=== PATIENT | female | born 1950 | race Caucasian/White ===

== ENCOUNTER 2021-02-15 15:30 | Emergency (ER) | payer MEDICARE ==
[2021-02-15] MEDS ORDERED: NORCO 5-325 TA1 EACH PO (18:51)
[2021-02-17] MEDS ORDERED: CELEXA10 MG PO (15:00)
[2021-02-17] MEDS ORDERED: SYNTHROID50 MCG PO (15:00)
[2021-02-17] MEDS ORDERED: MVI PO (15:02)
[2021-02-17] MEDS ORDERED: ESTROGEN CREAM VG (15:02)
[2021-02-17] MEDS ORDERED: TYLOPHEN500 MG PO (15:03)
== END 2021-02-15 19:22 | disposition home or self-care (01) ==
LOC: FER 15:30
DX: S52.501A Unspecified fracture of the lower end of right radius, initial encounter for closed fracture (principal); Z91.041 Radiographic dye allergy status; W01.0XXA Fall on same level from slipping, tripping and stumbling without subsequent striking against object, initial encounter; Y93.01 Activity, walking, marching and hiking; Y92.830 Public park as the place of occurrence of the external cause
CPT/HCPCS: 73110

== ENCOUNTER → 2021-02-22 | Day surgery (SDC) | payer MEDICARE ==
[~2021-02-22] VITALS: Ht 170.2 cm; Wt 67.1 kg
[~2021-02-22] MED LIST: CELEXA10 MG PO; ESTROGEN CREAM VG; MUCINEX 600MG600 MG PO; MVI PO; NORCO 5-325 TA1 EACH PO; SYNTHROID50 MCG PO; TYLOPHEN500 MG PO
[2021-02-22 08:40] LABS: HCT 41.9 % (37.0-47.0); MCH 30.8 pg (25.0-31.0); MCHC 33.4 g/dL (32.0-36.0); MCV 92.3 fL (78.0-100.0); RBC 4.54 M/uL (4.20-5.40); RDW 13.5 % (11.5-14.0); WBC 5.9 K/uL (4.0-10.5)
[2021-02-22 08:54] LABS: ALBUMIN 3.9 g/dL (3.4-5.0); BILIRUBIN - TOTAL 0.4 mg/dL (0.2-1.0); BUN/CREAT RATIO (CALC) 18.4 RATIO; CREATININE 0.87 mg/dL (0.51-0.95); GLOBULIN (CALCULATION) 4.2 g/dL; POTASSIUM 4.2 mmol/L (3.5-5.1); TOTAL PROTEIN 8.1 g/dL (6.4-8.2)
== END | disposition home or self-care (01) ==
LOC: FAS 07:42
PROVIDERS: Orthopaedic Surgery
DX: S52.571A Other intraarticular fracture of lower end of right radius, initial encounter for closed fracture (principal); E07.9 Disorder of thyroid, unspecified; F17.200 Nicotine dependence, unspecified, uncomplicated; Z90.49 Acquired absence of other specified parts of digestive tract; W19.XXXA Unspecified fall, initial encounter
CPT/HCPCS: 36415; 71045; 73100; 76000; 80053; 93005; C1713; C1769; J0690; J1100; J2250; J2405; J2704; J2795; J3010; J7120

== ENCOUNTER 2021-07-06 12:08 | Emergency (ER) | payer MEDICARE ==
[2021-07-06 13:07] LABS: BASOPHIL 0.8 % (0-2); EOSINOPHIL 1.5 % (0-7); HCT 43.6 % (37.0-47.0); HGB 14.2 g/dl (12.5-16.0); LYMPHOCYTE 35.2 % (15-48); MCH 30.2 pg (25.0-31.0); MCHC 32.6 g/dL (32.0-36.0); MCV 92.8 fL (78.0-100.0); MONOCYTE 8.1 % (0-12); MPV 10.4 fL (6.0-9.5); NEUTROPHIL 54.2 % (41-80); NRBC 0; PLT 322 K/uL (150-400); RDW 13.2 % (11.5-14.0); WBC 6.5 K/uL (4.0-10.5)
[2021-07-06 13:15] LABS: BUN/CREAT RATIO (CALC) 17.5 RATIO; CREATININE 0.8 mg/dL (0.51-0.95); MAGNESIUM 2.1 mg/dL (1.8-2.4); POTASSIUM 4.1 mmol/L (3.5-5.1)
[2021-07-06 13:28] LABS: BILIRUBIN NEGATIVE (NEGATIVE); BLOOD TRACE-INTACT Ery/uL (NEGATIVE); CLARITY CLEAR (CLEAR); COLOR YELLOW (YELLOW); GLUCOSE (U) NORMAL (NORMAL); LEUKOCYTES NEGATIVE Leu/uL (NEGATIVE); NITRITE NEGATIVE (NEGATIVE); PROTEIN NEGATIVE (NEGATIVE); SPECIFIC GRAVITY <=1.005 (1.001-1.030); UROBILINOGEN 0.2 mg/dL (0.2-1.0); pH 5.5 (5.0-9.0)
[2021-07-06 13:43] LABS: BACTERIA TRACE; URINARY RBC RARE; URINARY WBC RARE
== END 2021-07-06 14:53 | disposition home or self-care (01) ==
LOC: FER 12:08
PROVIDERS: Emergency Medicine
DX: I49.3 Ventricular premature depolarization (principal); I45.10 Unspecified right bundle-branch block; R94.31 Abnormal electrocardiogram [ECG] [EKG]; Z91.041 Radiographic dye allergy status
CPT/HCPCS: 36415; 71045; 80048; 81001; 83735; 84443; 84484; 85025; 93005